=== PATIENT | female | born 1965 | race Caucasian/White ===

== ENCOUNTER 2025-03-26 16:40 | Emergency (ER) | payer OTHER, BC ==
[~2025-03-26] VITALS: Ht 162.6 cm; Wt 84.0 kg
[2025-03-26 20:40] VITALS: BP 141/68; TEMP 97.6; O2SAT 99
== END 2025-03-26 20:46 | disposition home or self-care (01) ==
LOC: M ED 16:40
DX: S00.03XA Contusion of scalp, initial encounter (principal); S60.222A Contusion of left hand, initial encounter; W01.198A Fall on same level from slipping, tripping and stumbling with subsequent striking against other object, initial encounter; Y92.89 Other specified places as the place of occurrence of the external cause; Y93.89 Activity, other specified; Y99.0 Civilian activity done for income or pay